=== PATIENT | male | born 1985 | race Caucasian/White ===

== ENCOUNTER 2020-09-14 16:25 | Emergency (ER) | payer OTHER ==
[2020-09-14 16:39] VITALS: BP 169/105
[2020-09-14] MEDS ORDERED: NORCO 325 MG-51 TA1 PO (17:51)
== END 2020-09-14 17:58 | disposition home or self-care (01) ==
LOC: ED 16:25
DX: S42.002A Fracture of unspecified part of left clavicle, initial encounter for closed fracture (principal); V29.49XA Motorcycle driver injured in collision with other motor vehicles in traffic accident, initial encounter